=== PATIENT | male | born 1960 | race Caucasian/White ===

== ENCOUNTER 2017-08-27 11:10 | Observation (INO) | payer MEDICAID ==
[2017-08-27 11:38] VITALS: BMI 37.4
[2017-08-27] MEDS ORDERED: Sodium Chloride 0.9% 500 ML IV STA (11:42)
--- NOTE | 2017-08-27 11:45 | ED PDOC ---
HPI: Chest Pain Time Seen by Provider: 08/27/17 11:24 Chief Complaint (Provider): Chest pain History Per: Patient History/Exam Limitations: no limitations Onset/Duration Of Symptoms: Days (2 weeks) Current Symptoms Are (Timing): Still Present Additional History Per: Patient Additional Complaint(s): Pt. with chest pain sternal that comes and goes. Dyspnea with it. Had a heart attack in the past and is on brelynta. Also with cough, congestion, runny nose. No abd pain, nausea, vomit, diarrhea, weakness, numbness, tingles. Pt. with R and L knee pain for 3 months. No calf pain, no long distance travel, and no hormone tx. Past Medical History Reviewed: Nursing Documentation, Vital Signs Vital Signs: Last Vital Signs Temp 97 F L 08/27/17 11:36 Pulse 74 08/27/17 11:36 Resp 19 08/27/17 12:08 BP 141/80 08/27/17 11:36 Pulse Ox 94 L 08/27/17 11:47 - Medical History PMH: CAD, Hypercholesterolemia Other PMH: [place] - Surgical History Surgical History: No Surg Hx - Family History Family History: States: Unknown Family Hx - Home Medications Home Medications: Ambulatory Orders Medication Instructions Recorded Alprazolam [Xanax] 0.5 mg PO Q12 PRN 08/27/17 Atorvastatin [Lipitor] 80 mg PO HS 08/27/17 Isosorbide Mononitrate ER [Imdur 30 mg PO DAILY 08/27/17 ER] Losartan [Cozaar] 100 mg PO DAILY 08/27/17 Metoprolol Succinate [Toprol XL] 100 mg PO Q12 08/27/17 Omeprazole [Omeprazole] 40 mg PO DAILY PRN 08/27/17 Sertraline [Zoloft] 50 mg PO DAILY 08/27/17 Ticagrelor [Brilinta] 60 mg PO Q12 08/27/17 oxyCODONE [oxyCODONE Immediate 30 mg PO Q6 PRN 08/27/17 Release Tab] - Allergies Allergies/Adverse Reactions: Allergies Allergy/AdvReac Type Severity Reaction Status Date / Time No Known Allergies Allergy Verified 08/27/17 11:36 Review of Systems ROS Statement: Except As Marked, All Systems Reviewed And Found Negative ENT: Positive for: Nose Pain, Nose Discharge, Nose Congestion Cardiovascular: Positive for: Chest Pain Respiratory: Positive for: Cough, Shortness of Breath Musculoskeletal: Positive for: Leg Pain Physical Exam - Reviewed Nursing Documentation Reviewed: Yes Vital Signs Reviewed: Yes - Physical Exam Appears: Positive for: Non-toxic, No Acute Distress Head Exam: Positive for: ATRAUMATIC, NORMAL INSPECTION, NORMOCEPHALIC Skin: Positive for: Normal Color, Warm, DRY Eye Exam: Positive for: EOMI, Normal appearance, PERRL ENT: Positive for: Normal ENT Inspection Neck: Positive for: Normal, Painless ROM Cardiovascular/Chest: Positive for: Regular Rate, Rhythm, Chest Non Tender. Negative for: Edema Respiratory: Positive for: CNT, Normal Breath Sounds Gastrointestinal/Abdominal: Positive for: Normal Exam, Bowel Sounds, Soft. Negative for: Tenderness Back: Positive for: Normal Inspection. Negative for: L CVA Tenderness, R CVA Tenderness Extremity: Positive for: Normal ROM. Negative for: Tenderness, Pedal Edema Neurologic/Psych: Positive for: Alert, safety coordinator II-XII, Oriented. Negative for: Motor/Sensory Deficits - Laboratory Results Result Diagrams: 08/27/17 12:00 08/27/17 12:00 Interpretation Of Abn Labs: no acute - ECG ECG: Positive for: Interpreted By Me, Viewed By Me ECG Rhythm: Positive for: Normal QRS, Normal ST Segment, Sinus Rhythm O2 Sat by Pulse Oximetry: 94 - Radiology X-Ray: Read By Radiologist X-Ray Interpretation: No Acute Disease - Progress ED Course And Treament: 1352: Stable. AAOx3. Pain free. Will admit with Dr. Morocho who will give further orders when pt. reaches floor. Disposition - Clinical Impression Clinical Impression: Chest pain - Patient ED Disposition Is Patient to be Admitted: No Counseled Patient/Family Regarding: Studies Performed, Diagnosis - Disposition Disposition Time: 13:53 Condition: FAIR - Pt Status Changed To: Hospital Disposition Of: Observation - POA Present On Arrival: None Core Measure Indicators: Chest Pain
[2017-08-27] MEDS ORDERED: Morphine 4 MG/ML VIAL ONE (12:16)
[2017-08-27 12:27] LABS: BASO # 0.1 K/uL (0.0-0.2); BASO % 1.1 % (0.0-2.0); EOS # 0.2 K/uL (0.0-0.7); EOS % 2.2 % (0.0-4.0); HEMOGLOBIN 14.1 g/dL (12.0-18.0); LYMPH # 2.8 K/uL (1.0-4.3); LYMPH % 30.9 % (20.0-40.0); MEAN CELL VOLUME 78.9 fl (80.0-94.0); MEAN CORPUSCULAR HEMOGLOBIN 26.1 pg (27.0-31.0); MEAN CORPUSCULAR HGB CONC 33.1 g/dL (33.0-37.0); MEAN PLATELET VOLUME 9.3 fl (7.2-11.7); MONO # 0.8 K/uL (0.0-0.8); MONO % 8.5 % (0.0-10.0); NEUT # 5.2 K/uL (1.8-7.0); NEUT % 57.3 % (50.0-75.0); NRBC % 0.1 % (0.0-0.0); RBC 5.41 Mil/uL (4.40-5.90); RED CELL DISTRIBUTION WIDTH 15.1 % (11.5-14.5); WHITE BLOOD COUNT 9.1 K/uL (4.8-10.8)
[2017-08-27 12:29] LABS: PARTIAL THROMBOPLASTIN TIME 30.6 Seconds (25.6-37.1); PROTHROMBIN TIME 11.1 Seconds (9.8-13.1)
[2017-08-27 12:32] LABS: ALBUMIN 3.9 g/dL (3.5-5.0); ALT/SGPT 53 U/L (21-72); AST/SGOT 25 U/L (17-59); BLOOD UREA NITROGEN 15 mg/dl (9-20); CALCIUM 9.3 mg/dL (8.4-10.2); GFR AFRICAN-AMERICAN > 60; GFR NON-AFRICAN AMERICAN > 60
--- NOTE | 2017-08-27 12:39 | RAD ---
HISTORY: dyspnea COMPARISON: No prior. FINDINGS: LUNGS: Prominence of the pulmonary vasculature may be secondary to AP technique and/or pulmonary vascular congestion. No focal consolidation. PLEURA: No significant pleural effusion identified, no pneumothorax apparent. CARDIOVASCULAR: Cardiomediastinal silhouette appears prominent; however, this cannot be accurately assessed on an AP projection. OSSEOUS STRUCTURES: Degenerative changes. VISUALIZED UPPER ABDOMEN: Normal. OTHER FINDINGS: None. IMPRESSION: Prominence of the pulmonary vasculature may be secondary to AP technique and/or pulmonary vascular congestion. No focal consolidation or pleural effusion.
[2017-08-27 12:42] LABS: B-TYPE NATRIURETIC PEPTIDE 75.6 pg/ml (0-900)
[2017-08-27] MEDS ORDERED: Pantoprazole 40 mg EC Tab PO PRN (14:52)
[2017-08-27] MEDS ORDERED: Albuterol-Ipratrop 3 mg / 0.5 (3 ml) UD INH PRN (14:54)
--- NOTE | 2017-08-27 14:57 | CP.PCM.HP ---
<MadhuTyronYon - Last Filed: 08/28/17 07:01> History of Present Illness - History of Present Illness History of Present Illness: 56 y/o M with PMhx of HTN, CAD and Chronic lower back pain presented to ED c/o CP for the past 4 days, intermittent, throbbing, retrosternal with radiation to the back. Patient states he has hx of heart attacks in the past were he needed CPR during a hosp admission in [place], since then he has been on meds including Brilinta and he is compliant with them. At this time patient does not have the Chest pain. He also c/o SOB for 2 weeks that worsen when he lean forward or lies down in bed, is like a pressure sensation. Denies vomiting, nausea, paresthesias, headache, LE pain or abd pain. C/O Gassiness but denies heartburn. Admits sometimes he sleeps outside. No recent travel. Patient also has Hx of multiple lower back Sx with hardware implantation for what he takes daily oxycodone. Present on Admission - Present on Admission Any Indicators Present on Admission: No Review of Systems - Review of Systems All systems: reviewed and no additional remarkable complaints except - Cardiovascular Cardiovascular: Chest Pain - Respiratory Respiratory: Dyspnea - Gastrointestinal Gastrointestinal: Excessive Flatus - Musculoskeletal Musculoskeletal: Back Pain Past Patient History - Past Social History Smoking Status: Light Smoker < 10 Cigarettes Daily Alcohol: None Home Situation {Lives}: Alone - CARDIAC Hx Cardiac Disorders: Yes Hx Angina: Yes Hx Heart Attack: Yes Hx Hypercholesterolemia: Yes - PULMONARY Hx Respiratory Disorders: No - NEUROLOGICAL Hx Neurological Disorder: No - RENAL Hx Chronic Kidney Disease: No - ENDOCRINE/METABOLIC Hx Endocrine Disorders: No - HEMATOLOGICAL/ONCOLOGICAL Hx Blood Disorders: No - INTEGUMENTARY Hx Dermatological Problems: No - MUSCULOSKELETAL/RHEUMATOLOGICAL Hx Arthritis: Yes - GASTROINTESTINAL Hx Gastrointestinal Disorders: No - GENITOURINARY/GYNECOLOGICAL Hx Genitourinary Disorders: No - PSYCHIATRIC Hx Substance Use: No - SURGICAL HISTORY Hx Surgeries: Yes Other/Comment: back sx - ANESTHESIA Hx Anesthesia: Yes Meds Allergies/Adverse Reactions: Allergies Allergy/AdvReac Type Severity Reaction Status Date / Time No Known Allergies Allergy Verified 08/27/17 11:36 Physical Exam - Constitutional Appears: Non-toxic, No Acute Distress - Eye Exam Eye Exam: EOMI, PERRL - ENT Exam ENT Exam: Mucous Membranes Moist - Respiratory Exam Respiratory Exam: NORMAL BREATHING PATTERN - Cardiovascular Exam Cardiovascular Exam: +S1, +S2. absent: Gallop - GI/Abdominal Exam GI & Abdominal Exam: Normal Bowel Sounds, Soft. absent: Distended, Rebound, Tenderness - Extremities Exam Extremities exam: Negative for: calf tenderness, joint swelling, pedal edema, tenderness - Back Exam Back exam: absent: CVA tenderness (L), CVA tenderness (R) - Neurological Exam Neurological exam: Alert, Normal Gait, Oriented x3 - Psychiatric Exam Psychiatric exam: Normal Affect, Normal Mood - Skin Skin Exam: Normal Color, Warm Results - Vital Signs Recent Vital Signs: Last Vital Signs Temp 97 F L 08/27/17 11:36 Pulse 74 08/27/17 11:36 Resp 19 08/27/17 12:08 BP 141/80 08/27/17 11:36 Pulse Ox 94 L 08/27/17 13:54 - Labs Result Diagrams: 08/27/17 12:00 08/27/17 12:00 Labs: Laboratory Results - last 24 hr 08/27/17 08/27/17 08/27/17 12:00 12:00 12:00 WBC 9.1 RBC 5.41 Hgb 14.1 Hct 42.7 MCV 78.9 L MCH 26.1 L MCHC 33.1 RDW 15.1 H Plt Count 236 MPV 9.3 Neut % (Auto) 57.3 Lymph % (Auto) 30.9 [place] % (Auto) 8.5 Eos % (Auto) 2.2 Baso % (Auto) 1.1 Neut # (Auto) 5.2 Lymph # (Auto) 2.8 [place] # (Auto) 0.8 Eos # (Auto) 0.2 Baso # (Auto) 0.1 PT 11.1 INR 1.0 APTT 30.6 Sodium 142 Potassium 4.1 Chloride 104 Carbon Dioxide 24 Anion Gap 18 BUN 15 Creatinine 0.7 L Est GFR ( Amer) > 60 Est GFR (Non-Af Amer) > 60 Random Glucose 108 Calcium 9.3 Total Bilirubin 0.5 AST 25 ALT 53 Alkaline Phosphatase 102 Troponin I < 0.0120 NT-Pro-B Natriuret Pep 75.6 Total Protein 7.7 Albumin 3.9 Globulin 3.8 Albumin/Globulin Ratio 1.0 Assessment & Plan - Assessment and Plan (Free Text) Assessment: 56 y/o M with CAD admitted for CP/SOB CP rule out ACS Has Hx of CAD/Heart attack S/P ASA 325 mg at ED C/W Brilinta Trop x1 normal EKG normal sinus rhythm CP intermittent CXR poss vasc congestion, no infiltrates trops Q8h SOB for 2 weeks Smoker No fever CXR no infiltrates F/U Echo to r/o Cardiac F/U ProBnp Duonebs PRN <Haim Morocho K - Last Filed: 08/29/17 11:02> Results - Vital Signs Recent Vital Signs: Last Vital Signs Temp 97.7 F 08/28/17 13:00 Pulse 58 L 08/28/17 13:00 Resp 20 08/28/17 13:00 BP 165/85 H 08/28/17 13:00 Pulse Ox 95 08/28/17 13:00 - Labs Result Diagrams: 08/28/17 06:10 08/28/17 06:10 Labs: Laboratory Results - last 24 hr 08/27/17 15:39 Folate 19.8 Assessment & Plan - Assessment and Plan (Free Text) Assessment: Patient was personally seen and examined by me in rounds with residents. Available labs and diagnostic data reviewed. Case, patient's conditions and management plan discussed with residents in rounds. Agree with resident's progress note. Plan: As ordered.
[2017-08-27 16:00] LABS: B-TYPE NATRIURETIC PEPTIDE 74.3 pg/ml (0-900)
[2017-08-27] MEDS ORDERED: Pneumococcal 23-Valent Vaccine IM ONE (19:08)
[2017-08-27] MEDS: oxyCODONE 10 mg Immediate Release Tab PO PRN (22:00)
[2017-08-28 06:31] LABS: BASO # 0.1 K/uL (0.0-0.2); BASO % 0.8 % (0.0-2.0); EOS # 0.3 K/uL (0.0-0.7); HEMOGLOBIN 13.8 g/dL (12.0-18.0); LYMPH # 3.9 K/uL (1.0-4.3); LYMPH % 36.6 % (20.0-40.0); MEAN CELL VOLUME 78.5 fl (80.0-94.0); MEAN CORPUSCULAR HEMOGLOBIN 25.6 pg (27.0-31.0); MEAN CORPUSCULAR HGB CONC 32.7 g/dL (33.0-37.0); MEAN PLATELET VOLUME 9.1 fl (7.2-11.7); MONO # 0.8 K/uL (0.0-0.8); MONO % 7.6 % (0.0-10.0); NEUT # 5.5 K/uL (1.8-7.0); NRBC % 0.3 % (0.0-0.0); RBC 5.39 Mil/uL (4.40-5.90); WHITE BLOOD COUNT 10.6 K/uL (4.8-10.8)
[2017-08-28 06:40] LABS: BLOOD UREA NITROGEN 15 mg/dl (9-20); CALCIUM 9.2 mg/dL (8.4-10.2); GFR AFRICAN-AMERICAN > 60; GFR NON-AFRICAN AMERICAN > 60
[2017-08-28 08:21] VITALS: RESP 20
[2017-08-28] MEDS ORDERED: Enoxaparin 40 mg Syringe SC SCH (09:00)
[2017-08-28] MEDS: oxyCODONE 10 mg Immediate Release Tab PO PRN (10:42)
--- NOTE | 2017-08-28 10:49 | CP.PCM.CON ---
History of Present Illness - History of Present Illness History of Present Illness: I was asked to evalaute patient by Dr Morocho. Patient is a 56 year old male with remote history of CAD and stent placement (2 years ago) who presents with dyspnea and chest pain. The patient states one month ago he was placed on Brilinta by his medical doctor for chest pain. He feels a burning epigastric pain that does not radiate. The patient did no thave a cardaic cath or stent placement one month ago. He states his epigastric pain is worse. He has dyspnea at rest. Review of Systems - Constitutional Constitutional: absent: As Per HPI, Anorexia, Chills, Daytime Sleepiness, Excessive Sweating, Fatigue, Fever, Frequent Falls, Headache, Increased Appetite , Lethargy, Malaise, Night Sweats, Snoring, Sleep Apnea, Weight Gain, Weight Loss, Weakness, Other - EENT Eyes: absent: As Per HPI, Blind Spots, Blurred Vision, Change in Vision, Decreased Night Vision, Diplopia, Discharge, Dry Eye, Exophthalmos, Floaters, Irritation, Itchy Eyes, Loss of Peripheral Vision, Pain, Photophobia, Requires Corrective Lenses, Sees Flashes, Spots in Vision, Tunnel Vision, Other Visual Disturbances, Loss of Vision, Other Ears: absent: As Per HPI, Decreased Hearing, Ear Discharge, Ear Pain, Tinnitus, Abnormal Hearing, Disequilibrium, Dizziness, Other Nose/Mouth/Throat: absent: As Per HPI, Epistaxis, Nasal Congestion, Nasal Discharge, Nasal Obstruction, Nasal Trauma, Nose Pain, Post Nasal Drip, Sinus Pain, Sinus Pressure, Bleeding Gums, Change in Voice, Dental Pain, Dry Mouth, Dysphagia, Halitosis, Hoarsness, Lip Swelling, Mouth Lesions, Mouth Pain, Odynophagia, Sore Throat, Throat Swelling, Tongue Swelling, Facial Pain, Neck Pain, Neck Mass, Other - Cardiovascular Cardiovascular: absent: As Per HPI, Acrocyanosis, Chest Pain, Chest Pain at Rest , Chest Pain with Activity, Claudication, Diaphoresis, Dyspnea, Dyspnea on Exertion, Edema, Irregular Heart Rhythm, Pain Radiating to Arm/Neck/Jaw, Leg Edema, Leg Ulcers, Lightheadedness, Orthopnea, Palpitations, Paroxysmal Nocturnal Dyspnea, Pedal Edema, Radiating Pain, Rapid Heart Rate, Slow Heart Rate, Syncope, Other - Respiratory Respiratory: Dyspnea - Gastrointestinal Gastrointestinal: Dyspepsia - Genitourinary Genitourinary: absent: As Per HPI, Change in Urinary Stream, Difficulty Urinating, Dysuria, Flank Pain, Hematuria, Pyuria, Nocturia, Urinary Incontinence, Urinary Frequency, Urinary Hesitance, Urinary Urgency, Voiding Freq/Small Amts, Freq UTI, Hx Renal/Bladder Calculi, Hx /Renal Surgery, Bladder Distension, Other - Musculoskeletal Musculoskeletal: absent: As Per HPI, Abnormal Gait, Arthralgias, Atrophy, Back Pain, Deformity, Joint Swelling, Limited Range of Motion, Loss of Height, Muscle Cramps, Muscle Weakness, Myalgias, Neck Pain, Numbness, Radiating Pain into Limb, Stiffness, Tingling, Other - Integumentary Integumentary: absent: As Per HPI, Acne, Alopecia, Bleeding Lesions, Change in Hair, Change in Nails, Change in Pigmentation, Changing Lesions, Dry Skin, Erythema, Furuncle, Hirsutism, Lesions, New Lesions, Non-Healing Lesions, Photosensitivity, Pruritus, Rash, Skin Pain, Skin Ulcer, Sores, Striae, Swelling , Unusual Bruising, Wounds, Jaundice, Other - Neurological Neurological: absent: As Per HPI, Abnormal Gait, Abnormal Hearing, Abnormal Movements, Abnormal Speech, Behavioral Changes, Burning Sensations, Confusion, Convulsions, Disequilibrium, Dizziness, Numbness, Focal Weakness, Frequent Falls , Headaches, Lack of Coordination, Loss of Vision, Memory Loss, Paresthesias, Radicular Pain, Restless Legs, Sensory Deficit, Syncope, Tingling, Tremor, Vertigo, Weakness, Other Visual Disturbances, Other - Psychiatric Psychiatric: absent: As Per HPI, Abnormal Sleep Pattern, Anhedonia, Anxiety, Auditory Hallucinations, Behavioral Changes, Change in Appetite, Change in Libido, Confusion, Depression, Difficulty Concentrating, Hallucinations, Homicidal Ideation, Hopelessness, Irritability, Memory Loss, Mood Swings, Panic Attacks, Paranoia, Suicidal Ideation, Visual Hallucinations, Tactile Hallucinations, Other - Endocrine Endocrine: absent: As Per HPI, Change in Body Appearance, Change in Libido, Cold Intolorance, Deepening of Voice, Excessive Sweating, Fatigue, Flushing, Heat Intolorance, Increase in Ring/Shoe/Hat Size, Palpitations, Polydipsia, Polyphagia, Polyuria, Other - Hematologic/Lymphatic Hematologic: absent: As Per HPI, Easy Bleeding, Easy Bruising, Lymphadenopathy, Other Past Patient History - Past Social History Smoking Status: Light Smoker < 10 Cigarettes Daily Alcohol: None Home Situation {Lives}: Alone - CARDIAC Hx Cardiac Disorders: Yes Hx Angina: Yes Hx Heart Attack: Yes Hx Hypercholesterolemia: Yes - PULMONARY Hx Respiratory Disorders: No - NEUROLOGICAL Hx Neurological Disorder: No - RENAL Hx Chronic Kidney Disease: No - ENDOCRINE/METABOLIC Hx Endocrine Disorders: No - HEMATOLOGICAL/ONCOLOGICAL Hx Blood Disorders: No - INTEGUMENTARY Hx Dermatological Problems: No - MUSCULOSKELETAL/RHEUMATOLOGICAL Hx Arthritis: Yes - GASTROINTESTINAL Hx Gastrointestinal Disorders: No - GENITOURINARY/GYNECOLOGICAL Hx Genitourinary Disorders: No - PSYCHIATRIC Hx Substance Use: No - SURGICAL HISTORY Hx Surgeries: Yes Other/Comment: back sx - ANESTHESIA Hx Anesthesia: Yes Meds Allergies/Adverse Reactions: Allergies Allergy/AdvReac Type Severity Reaction Status Date / Time No Known Allergies Allergy Verified 08/27/17 11:36 - Medications Medications: Current Medications Albuterol/Ipratropium (Duoneb 3 Mg/0.5 Mg (3 Ml) Ud) 3 ml INH RQ6 PRN PRN Reason: Shortness of Breath Atorvastatin Calcium (Lipitor) 80 mg PO HS [facility] Last Admin: 08/27/17 21:55 Dose: 80 mg Cyanocobalamin (Vitamin B12 1000 Mcg Tab) 1,000 mcg PO DAILY [facility] Stop: 09/03/17 09:01 Enoxaparin Sodium (Lovenox) 40 mg SC DAILY [facility] PRN Reason: Protocol Last Admin: 08/28/17 10:31 Dose: 40 mg Famotidine (Pepcid) 40 mg PO HS [facility] Last Admin: 08/27/17 21:55 Dose: 40 mg Isosorbide Mononitrate (Imdur Er) 30 mg PO DAILY [facility] Last Admin: 08/28/17 10:31 Dose: 30 mg Losartan Potassium (Cozaar) 100 mg PO DAILY [facility] Last Admin: 08/28/17 10:29 Dose: 100 mg Metoprolol Tartrate (Lopressor) 100 mg PO Q12 [facility] Last Admin: 08/28/17 10:30 Dose: 100 mg Nicotine (Nicoderm Cq) 1 patch TD DAILY [facility] Last Admin: 08/28/17 10:32 Dose: 1 patch Oxycodone HCl (Oxycodone Immediate Release Tab) 30 mg PO Q6 PRN PRN Reason: Pain, severe (8-10) Last Admin: 08/28/17 10:42 Dose: 30 mg Pantoprazole Sodium (Protonix Ec Tab) 40 mg PO DAILY PRN PRN Reason: Heartburn Last Admin: 08/28/17 10:35 Dose: 40 mg Sertraline HCl (Zoloft) 50 mg PO DAILY [facility] Last Admin: 08/28/17 10:35 Dose: 50 mg Ticagrelor (Brilinta) 60 mg PO Q12 [facility] Last Admin: 08/27/17 21:55 Dose: 60 mg Physical Exam - Constitutional Appears: Non-toxic - Head Exam Head Exam: NORMAL INSPECTION - Eye Exam Eye Exam: Normal appearance - ENT Exam ENT Exam: Mucous Membranes Moist - Neck Exam Neck exam: Positive for: Full Rom - Respiratory Exam Respiratory Exam: NORMAL BREATHING PATTERN - Cardiovascular Exam Cardiovascular Exam: REGULAR RHYTHM - GI/Abdominal Exam GI & Abdominal Exam: Normal Bowel Sounds - Rectal Exam Rectal Exam: Deferred - Extremities Exam Extremities exam: Negative for: pedal edema - Back Exam Back exam: NORMAL INSPECTION - Neurological Exam Neurological exam: Alert, Oriented x3 - Psychiatric Exam Psychiatric exam: Normal Affect - Skin Skin Exam: Normal Color Results - Vital Signs Recent Vital Signs: Last Vital Signs Temp 97.8 F 08/28/17 08:20 Pulse 61 08/28/17 10:30 Resp 20 08/28/17 08:20 BP 126/78 08/28/17 10:30 Pulse Ox 98 08/28/17 08:20 - Labs Result Diagrams: 08/28/17 06:10 08/28/17 06:10 Labs: Laboratory Results - last 24 hr 08/27/17 08/27/17 08/27/17 12:00 12:00 12:00 WBC 9.1 RBC 5.41 Hgb 14.1 Hct 42.7 MCV 78.9 L MCH 26.1 L MCHC 33.1 RDW 15.1 H Plt Count 236 MPV 9.3 Neut % (Auto) 57.3 Lymph % (Auto) 30.9 [place] % (Auto) 8.5 Eos % (Auto) 2.2 Baso % (Auto) 1.1 Neut # (Auto) 5.2 Lymph # (Auto) 2.8 [place] # (Auto) 0.8 Eos # (Auto) 0.2 Baso # (Auto) 0.1 PT 11.1 INR 1.0 APTT 30.6 Sodium 142 Potassium 4.1 Chloride 104 Carbon Dioxide 24 Anion Gap 18 BUN 15 Creatinine 0.7 L Est GFR ( Amer) > 60 Est GFR (Non-Af Amer) > 60 Random Glucose 108 Hemoglobin A1c Calcium 9.3 Total Bilirubin 0.5 AST 25 ALT 53 Alkaline Phosphatase 102 Troponin I < 0.0120 NT-Pro-B Natriuret Pep 75.6 Total Protein 7.7 Albumin 3.9 Globulin 3.8 Albumin/Globulin Ratio 1.0 Vitamin B12 Free T4 TSH 3rd Generation 08/27/17 08/27/17 08/27/17 15:39 15:39 20:01 WBC RBC Hgb Hct MCV MCH MCHC RDW Plt Count MPV Neut % (Auto) Lymph % (Auto) [place] % (Auto) Eos % (Auto) Baso % (Auto) Neut # (Auto) Lymph # (Auto) [place] # (Auto) Eos # (Auto) Baso # (Auto) PT INR APTT Sodium Potassium Chloride Carbon Dioxide Anion Gap BUN Creatinine Est GFR ( Amer) Est GFR (Non-Af Amer) Random Glucose Hemoglobin A1c 6.0 Calcium Total Bilirubin AST ALT Alkaline Phosphatase Troponin I < 0.0120 NT-Pro-B Natriuret Pep 74.3 Total Protein Albumin Globulin Albumin/Globulin Ratio Vitamin B12 293 Free T4 TSH 3rd Generation 0.22 L 08/28/17 08/28/17 08/28/17 06:10 06:10 06:10 WBC 10.6 RBC 5.39 Hgb 13.8 Hct 42.3 MCV 78.5 L MCH 25.6 L MCHC 32.7 L RDW 15.0 H Plt Count 219 MPV 9.1 Neut % (Auto) 52.0 Lymph % (Auto) 36.6 [place] % (Auto) 7.6 Eos % (Auto) 3.0 Baso % (Auto) 0.8 Neut # (Auto) 5.5 Lymph # (Auto) 3.9 [place] # (Auto) 0.8 Eos # (Auto) 0.3 Baso # (Auto) 0.1 PT INR APTT Sodium 144 Potassium 4.1 Chloride 103 Carbon Dioxide 28 Anion Gap 17 BUN 15 Creatinine 0.9 Est GFR ( Amer) > 60 Est GFR (Non-Af Amer) > 60 Random Glucose 86 Hemoglobin A1c Calcium 9.2 Total Bilirubin AST ALT Alkaline Phosphatase Troponin I < 0.0120 NT-Pro-B Natriuret Pep Total Protein Albumin Globulin Albumin/Globulin Ratio Vitamin B12 Free T4 0.92 TSH 3rd Generation - EKG Data EKG Interpreted by: Myself EKG shows normal: Sinus rhythm Assessment & Plan (1) Chest pain Assessment and Plan: I reviewed the patient's history. The patietn was placed on Brilinta for chest pain, but no cath or stent was performed. His chest pain may be due to dsypepsia. There is dyspnea in 14% of patients on Brilitna, and this may be the cause of his symptoms. I recommend d/c ing Brilinta. ADD PPI. with negative cardiac enzymes, normal EKG and echo with normal LV function, patient is safge for discharge. I recommend outpatient follow up and stress test. Status: Acute (2) CAD (coronary artery disease) Assessment and Plan: aspirin therapy Status: Acute (3) HTN (hypertension) Assessment and Plan: medical therapy Status: Acute
--- NOTE | 2017-08-28 11:01 | CP.PCM.DIS ---
Provider - Provider Date of Admission: 08/27/17 13:50 Attending physician: Haim Morocho MD Consults: Cardiology Time Spent in preparation of Discharge (in minutes): 30 Diagnosis - Discharge Diagnosis (1) CAD (coronary artery disease) Status: Chronic Comment: Stable. Recs stress test as outpatient. (2) Chest pain Status: Acute Comment: ACS ruled out. (3) HTN (hypertension) Status: Chronic Comment: Stable Hospital Course - Lab Results Lab Results: Most Recent Lab Values WBC 10.6 K/uL (4.8-10.8) 08/28/17 06:10 RBC 5.39 Mil/uL (4.40-5.90) 08/28/17 06:10 Hgb 13.8 g/dL (12.0-18.0) 08/28/17 06:10 Hct 42.3 % (35.0-51.0) 08/28/17 06:10 MCV 78.5 fl (80.0-94.0) L 08/28/17 06:10 MCH 25.6 pg (27.0-31.0) L 08/28/17 06:10 MCHC 32.7 g/dL (33.0-37.0) L 08/28/17 06:10 RDW 15.0 % (11.5-14.5) H 08/28/17 06:10 Plt Count 219 K/uL (130-400) 08/28/17 06:10 MPV 9.1 fl (7.2-11.7) 08/28/17 06:10 Neut % (Auto) 52.0 % (50.0-75.0) 08/28/17 06:10 Lymph % (Auto) 36.6 % (20.0-40.0) 08/28/17 06:10 [place] % (Auto) 7.6 % (0.0-10.0) 08/28/17 06:10 Eos % (Auto) 3.0 % (0.0-4.0) 08/28/17 06:10 Baso % (Auto) 0.8 % (0.0-2.0) 08/28/17 06:10 Neut # (Auto) 5.5 K/uL (1.8-7.0) 08/28/17 06:10 Lymph # (Auto) 3.9 K/uL (1.0-4.3) 08/28/17 06:10 [place] # (Auto) 0.8 K/uL (0.0-0.8) 08/28/17 06:10 Eos # (Auto) 0.3 K/uL (0.0-0.7) 08/28/17 06:10 Baso # (Auto) 0.1 K/uL (0.0-0.2) 08/28/17 06:10 PT 11.1 Seconds (9.8-13.1) 08/27/17 12:00 INR 1.0 (0.9-1.2) 08/27/17 12:00 APTT 30.6 Seconds (25.6-37.1) 08/27/17 12:00 Sodium 144 mmol/l (132-148) 08/28/17 06:10 Potassium 4.1 MMOL/L (3.6-5.0) 08/28/17 06:10 Chloride 103 mmol/L (98-107) 08/28/17 06:10 Carbon Dioxide 28 mmol/L (22-30) 08/28/17 06:10 Anion Gap 17 (10-20) 08/28/17 06:10 BUN 15 mg/dl (9-20) 08/28/17 06:10 Creatinine 0.9 mg/dl (0.8-1.5) 08/28/17 06:10 Est GFR ( Amer) > 60 08/28/17 06:10 Est GFR (Non-Af Amer) > 60 08/28/17 06:10 Random Glucose 86 mg/dL (75-110) 08/28/17 06:10 Hemoglobin A1c 6.0 % (4.2-6.5) 08/27/17 15:39 Calcium 9.2 mg/dL (8.4-10.2) 08/28/17 06:10 Total Bilirubin 0.5 mg/dl (0.2-1.3) 08/27/17 12:00 AST 25 U/L (17-59) 08/27/17 12:00 ALT 53 U/L (21-72) 08/27/17 12:00 Alkaline Phosphatase 102 U/L (38-126) 08/27/17 12:00 Troponin I < 0.0120 ng/mL (0.00-0.120) 08/28/17 06:10 NT-Pro-B Natriuret Pep 74.3 pg/ml (0-900) 08/27/17 15:39 Total Protein 7.7 G/DL (6.3-8.2) 08/27/17 12:00 Albumin 3.9 g/dL (3.5-5.0) 08/27/17 12:00 Globulin 3.8 gm/dL (2.2-3.9) 08/27/17 12:00 Albumin/Globulin Ratio 1.0 (1.0-2.1) 08/27/17 12:00 Vitamin B12 293 pg/mL (239-931) 08/27/17 15:39 Free T4 0.92 ng/dL (0.78-2.19) 08/28/17 06:10 TSH 3rd Generation 0.22 mIU/ML (0.46-4.68) L 08/27/17 15:39 - Hospital Course Hospital Course: 56 y/o M with PMHx of CAD, HTN presented Yesterday c/o CP and SOB. Patient was admitted to hosp for obs and given ASA 325mg once, pepcid and home meds. Trops x3, EKG and Echocardiogram all unremarkable. Cardiology was consulted and recommended to stop Brilinta because patient doesnt need it at this time and there is a poss of dyspnea as a SE of this medication. PAtient should take Aspirin 81 mg daily and f/u as outpatient with stress stress. Patient is stable and cleared to be DC home. Discharge Exam - Head Exam Head Exam: NORMAL INSPECTION Discharge Plan - Discharge Medications Prescriptions: Cyanocobalamin [Vitamin B12 1000 mcg Tab] 1,000 mcg PO DAILY #30 tab - Follow Up Plan Condition: FAIR Instructions: Chest Pain (DC), Coronary Heart Disease (DC) Additional Instructions: pt. cleared for discharge to Home today by , pt. instructed to discontinue Brillanta- medication instructions provided cont. current meds
--- NOTE | 2017-08-28 12:26 | CARD ---
APPROVED REPORT EXAM: Two-dimensional and M-mode echocardiogram with Doppler and color Doppler. Other Information Quality : GoodRhythm : NSR INDICATION Chest Pain 2D DIMENSIONS IVSd2.17 (0.7-1.1cm)LVDd4.32 (3.9-5.9cm) LVOT Diameter2.39 (1.8-2.4cm)PWd0.98 (0.7-1.1cm) IVSs2.35 (0.8-1.2cm)LVDs2.93 (2.5-4.0cm) FS (%) 32.0 %PWs2.15 (0.8-1.2cm) M-Mode DIMENSIONS Left Atrium (MM)4.19 (2.5-4.0cm)IVSd1.25 (0.7-1.1cm) Aortic Root3.66 (2.2-3.7cm)LVDd6.31 (4.0-5.6cm) Aortic Cusp Exc.2.22 (1.5-2.0cm)PWd1.06 (0.7-1.1cm) IVSs2.47 cmFS (%) 64 % LVDs2.25 (2.0-3.8cm)PWs1.84 cm Mitral Valve MV E Acoetvrg80.5cm/sMV DECEL [id number] A Fmtbaslq46.2cm/s MV EJO31kkO/A ratio1.5MVA (PHT)3.70cm2 TDI Lateral E' Peak V14.26cm/sMedial E' Peak V8.23cm/sE/Lateral E'4.2 E/Medial E'7.2 LEFT VENTRICLE The left ventricle is normal size. There is mild concentric left ventricular hypertrophy. Left ventricle systolic function is normal. The Ejection Fraction is 65-70%. There is normal LV segmental wall motion. The left ventricular diastolic function is normal. RIGHT VENTRICLE The right ventricle is normal size. There is normal right ventricular wall thickness. The right ventricular systolic function is normal. ATRIA The left atrium size is normal. The right atrium size is normal. AORTIC VALVE The aortic valve is normal in structure. No aortic regurgitation is present. There is no aortic valvular stenosis. MITRAL VALVE The mitral valve is normal in structure. There is no evidence of mitral valve prolapse. There is no mitral valve stenosis. Mitral regurgitation is mild. TRICUSPID VALVE The tricuspid valve is normal in structure. There is no tricuspid valve regurgitation noted. PULMONIC VALVE The pulmonary valve is normal in structure. There is no pulmonic valvular regurgitation. GREAT VESSELS The aortic root is normal in size. Due to poor image quality, the IVC could not be assessed. PERICARDIAL EFFUSION The pericardium appears normal. <Conclusion> The left ventricle is normal size. There is mild concentric left ventricular hypertrophy. There is normal LV segmental wall motion. Left ventricle systolic function is normal. The Ejection Fraction is 65-70%. The left ventricular diastolic function is normal.
[2017-08-28 13:02] VITALS: BP 165/85; PULSE 58; TEMP 97.7; O2SAT 95
--- NOTE | 2017-08-28 13:44 | CARD ---
APPROVED REPORT EKG Measurement Heart [id number] ID [id number] <Conclusion> Normal sinus rhythm Normal ECG
[2017-08-28 17:32] LABS: FOLATE 19.8 ng/mL
== END 2017-08-28 14:00 | disposition home or self-care (01) ==
LOC: H.ER 11:10 → H.ERHOLD 13:50 → H.TEL 17:06
PROVIDERS: ADMIT Internal Medicine; ATTEND Internal Medicine
DX: R07.9 Chest pain, unspecified (principal); G89.29 Other chronic pain; Z23 Encounter for immunization; I25.10 Atherosclerotic heart disease of native coronary artery without angina pectoris; E78.00 Pure hypercholesterolemia, unspecified; I25.2 Old myocardial infarction; I10 Essential (primary) hypertension; F17.210 Nicotine dependence, cigarettes, uncomplicated; Z95.5 Presence of coronary angioplasty implant and graft